=== PATIENT | female | born 1950 | race Caucasian/White ===

== ENCOUNTER → 2018-11-02 | Outpatient (CLI) | payer MEDICARE ==
[~2018-11-02] MED LIST: BENTYL10 MG PO; CENTRUM SILVER1 EAC3 PO; CLONAZEPAM0.5 MG PO; LEVOXYL25 MCG PO; NORCO 10-325 T1 EACH; PRILOSEC20 MG PO; QUESTRAN PACKET4 GM PO; TRAZODONE HCL300 MG PO; VITAMIN B COMP1 EAC1 PO
--- NOTE | 2018-11-02 15:14 | Diagnostic Imaging Report ---
Exam: CT chest Clinical history: Pulmonary nodules Technique: Helical images of the chest were obtained without contrast DOSE REDUCTION: The exams was performed according to the departmental dose-optimization program which includes automated exposure control, adjustment of the mA and/or kV according to patient size and/or use of iterative reconstruction technique. Findings: There is a 2 mm pleural-based solid nodule in the right upper lobe with well defined margin on series 3, image 21. A 6 mm oval solid nodule with well-defined border is also noted in the left lower lobe on series 3, image 69. Follow-up CT at 3-6 month interval is recommended to ensure stability. There is no evidence of a consolidation, pleural effusion, edema, or pneumothorax. The tracheobronchial tree is clear. The cardiac size is within normal limits. The great vessels are normal in caliber and orientation. Atherosclerotic calcification of the thoracic aorta is noted. The visualized upper abdominal solid organs are unremarkable. Impression: 1. Bilateral subcentimeter pulmonary nodules as described. Signed by: Dr. Yadiel Headley MD on 11/02/2018 3:11 PM
== END ==
LOC: CT 13:44
PROVIDERS: ATTEND Internal Medicine Critical Care Medicine
DX: R91.8 Other nonspecific abnormal finding of lung field (principal)
CPT/HCPCS: 71250

== ENCOUNTER → 2019-02-08 | Outpatient (CLI) | payer MEDICARE ==
--- NOTE | 2019-02-21 10:01 | Diagnostic Imaging Report ---
#[id number] - [id number] #BILATERAL DIGITAL DIAGNOSTIC MAMMOGRAM WITH CAD: 02/08/2019 Comparison is made to exams dated: 04/15/2016 mammogram and 12/15/2014 mammogram - [facility]. There are scattered fibroglandular elements in both breasts. Current study was also evaluated with a Computer Aided Detection (CAD) system. There is a benign calcification in both breasts. There also are benign lymph nodes in both breasts. No significant masses, calcifications, or other findings are seen in either breast. There has been no significant interval change. IMPRESSION: BENIGN There is no mammographic evidence of malignancy. A 1 year screening mammogram is recommended. The patient will be notified by letter of the results. 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
== END ==
LOC: MAMMO 13:17
PROVIDERS: ATTEND Family Medicine
DX: R92.2 Inconclusive mammogram (principal)
CPT/HCPCS: 77066

== ENCOUNTER → 2019-11-15 | Outpatient (CLI) | payer MEDICARE ==
--- NOTE | 2019-11-15 16:57 | Diagnostic Imaging Report ---
Exam: CHEST 2 VIEWS Date: 11/15/2019 4:53 PM INDICATION: ^[id number] ^[id number] ^ENCOUNTER FOR OTHER PREPROCEDURAL EXAM Comparison: CT dated 11/02/2018 FINDINGS: Lines/Tubes:None Lungs:The lungs are well inflated. No focal consolidation or pulmonary edema. Pleura:No pleural effusion. No pneumothorax. Heart/Mediastinum:The cardiomediastinal silhouette is normal in size and contour. Bones/Soft Tissues: No acute osseous abnormality. Postoperative changes from right shoulder arthroplasty are noted. Mild multilevel degenerative changes of the spine are noted. Upper abdomen: Unremarkable. IMPRESSION: Negative for acute intrathoracic process. Signed by: Abraham Ramos MD on 11/15/2019 4:54 PM
== END ==
LOC: RAD 16:24
PROVIDERS: ATTEND Family Medicine
DX: Z01.818 Encounter for other preprocedural examination (principal)
CPT/HCPCS: 71046

== ENCOUNTER → 2019-12-06 | Outpatient (CLI) | payer MEDICARE | LOC: CT 13:51 | PROVIDERS: ATTEND Internal Medicine Critical Care Medicine | DX: R91.8 Other nonspecific abnormal finding of lung field (principal) | CPT/HCPCS: 71250 ==

== ENCOUNTER → 2020-04-17 | Outpatient (CLI) | payer MEDICARE | LOC: RAD 12:45 | PROVIDERS: ATTEND Family Medicine | DX: R05 Cough (principal) | CPT/HCPCS: 71046 ==

== ENCOUNTER → 2021-11-29 | Outpatient (CLI) | payer MEDICARE | LOC: RAD 13:45 | PROVIDERS: ATTEND Internal Medicine Critical Care Medicine | DX: J44.9 Chronic obstructive pulmonary disease, unspecified (principal) | CPT/HCPCS: 71046 ==

== ENCOUNTER → 2022-07-01 | Outpatient (CLI) | payer MEDICARE | LOC: MAMMO 12:59 | PROVIDERS: ATTEND Family Medicine | DX: Z12.31 Encounter for screening mammogram for malignant neoplasm of breast (principal); M85.88 Other specified disorders of bone density and structure, other site; J44.9 Chronic obstructive pulmonary disease, unspecified | CPT/HCPCS: 71046; 77067; 77080 ==

== ENCOUNTER → 2022-07-28 | Outpatient (CLI) | payer MEDICARE | LOC: RAD 14:48 | PROVIDERS: ATTEND Internal Medicine Critical Care Medicine | DX: R05.9 Cough, unspecified (principal); J44.9 Chronic obstructive pulmonary disease, unspecified | CPT/HCPCS: 71046 ==

== ENCOUNTER → 2023-12-29 | Outpatient (REF) | payer MEDICARE ==
[~2023-12-29] MED LIST changes: +ASPIRIN EC81 MG PO; +DIAZEPAM2 MG PO; +FUROSEMIDE40 MG PO; +LYRICA50 MG PO; +MORPHINE SULFAT30 M2 PO; +POTASSIUM CHLO10 ME1 PO; +VITAMIN C1000 MG PO
== END ==
LOC: MAMMO 14:36
PROVIDERS: ATTEND Family Medicine
DX: Z12.31 Encounter for screening mammogram for malignant neoplasm of breast (principal); M85.88 Other specified disorders of bone density and structure, other site
CPT/HCPCS: 77067; 77080

== ENCOUNTER → 2024-02-07 | Outpatient (REF) | payer MEDICARE ==
[~2024-02-07] MED LIST changes: +IOPAMIDOL 370 MG/ML 100 ML INFUS..BTL INJ ONE
[2024-02-07 13:33] LABS: CREATININE, SERUM 0.76 mg/dL (0.57-1.11)
== END ==
LOC: CT 12:53
PROVIDERS: ATTEND Family Medicine
DX: R10.30 Lower abdominal pain, unspecified (principal)
CPT/HCPCS: 36415; 74177; 82565; 84520; Q9967

== ENCOUNTER → 2024-06-06 | Outpatient (REF) | payer MEDICARE ==
[~2024-06-06] MED LIST changes: -IOPAMIDOL 370 MG/ML 100 ML INFUS..BTL INJ ONE
== END ==
LOC: MRI 12:45
PROVIDERS: ATTEND Orthopaedic Surgery Adult Reconstructive Orthopaedic Surgery
DX: M54.16 Radiculopathy, lumbar region (principal)
CPT/HCPCS: 72148